=== PATIENT | male | born 1975 | race Hispanic/Latino ===

== ENCOUNTER 2018-05-04 13:56 | Emergency (ER) | payer BC ==
[2018-05-04] MEDS ORDERED: TETRACAINE HCL 0.5% 2ML OPTH ONE (14:54)
[2018-05-04] MEDS ORDERED: FLUORESCEIN SODIUM 0.6 MG/WRAP ONE (14:54)
[2018-05-04] MEDS ORDERED: BACITRACIN OPTH OINT TUBE EACH EYE ONE (16:15)
--- NOTE | 2018-05-04 16:15 | ER ---
Nurse's Notes [facility] Name: Ki Rodriguez Age: 42 yrs Sex: Male : 1975 Arrival Date: 05/04/2018 Time: 13:59 Bed 14 Private MD: None, None Diagnosis: Injury of conjunctiva and corneal abrasion without foreign body Presentation: 05/04 14:07 Presenting complaint: Patient states: was weed eating yesterday and felt like he got iw something in his right eye, still bothering him today, denies loss of vision or blurry vision. Transition of care: patient was not received from another setting of care. Onset of symptoms was May 03, 2018. Risk Assessment: Do you want to hurt yourself or someone else? Patient reports no desire to harm self or others. Initial Sepsis Screen: Does the patient meet any 2 criteria? No. Patient's initial sepsis screen is negative. Does the patient have a suspected source of infection? No. Patient's initial sepsis screen is negative. Care prior to arrival: None. 14:07 Method Of Arrival: Ambulatory iw 14:07 Acuity: SNEHAL 4 iw Historical: - Allergies: 14:08 NKA; iw - Home Meds: 14:08 None [Active]; iw - PMHx: 14:08 Asthma; iw - PSHx: 14:08 left knee; iw - Immunization history:: Adult Immunizations unknown, Last tetanus immunization: unknown. - Social history:: Smoking status: Patient uses tobacco products, smokes one pack cigarettes per day. - Ebola Screening: : No symptoms or risks identified at this time. - Family history:: not pertinent. Screenin:54 Abuse screen: Denies threats or abuse. Nutritional screening: No deficits noted. hj Tuberculosis screening: No symptoms or risk factors identified. Fall Risk None identified. Assessment: 14:51 General: Appears in no apparent distress. uncomfortable, Behavior is calm, cooperative, hj appropriate for age. Pain: Complains of pain in right eye Pain does not radiate. Pain currently is 10 out of 10 on a pain scale. at worst was 10 out of 10 on a pain scale. Quality of pain is described as stabbing, Pain began 1 day ago. Is intermittent. Neuro: Level of Consciousness is awake, alert, obeys commands, Oriented to person, place, time, situation. Cardiovascular: Heart tones S1 S2 present Patient's skin is warm and dry. Respiratory: Airway is patent Respiratory effort is even, unlabored, Respiratory pattern is regular, symmetrical, Breath sounds are clear bilaterally. GI: No signs and/or symptoms were reported involving the gastrointestinal system. : No signs and/or symptoms were reported regarding the genitourinary system. EENT: Eyes redness and discahrges;. Derm: No signs and/or symptoms reported regarding the dermatologic system. Musculoskeletal: No signs and/or symptoms reported regarding the musculoskeletal system. 15:48 Reassessment: Pt is resting with eyes closed. Respirations even and unlabored. no signs jb4 of distress noted. Vital Signs: 14:12 BP 161 / 92; Pulse 78; Resp 16; Temp 98.2; Pulse Ox 98% on R/A; Weight 99.79 kg; Height iw 5 ft. 5 in. (165.10 cm); Pain 10/10; 14:55 BP 134 / 77; Pulse 63; Resp 18; Pulse Ox 98% on R/A; Pain 10/10; hj 15:48 BP 118 / 74; Pulse 56; Resp 16; Pulse Ox 97% on R/A; jb4 14:12 Body Mass Index 36.61 (99.79 kg, 165.10 cm) iw ED Course: 13:59 Patient arrived in ED. sb2 13:59 None, None is Private Physician. sb2 14:03 Ranjan Chavez, RN is Primary Nurse. hj 14:08 Triage completed. iw 14:12 Arm band placed on. iw 14:13 Sohail Rosado MD is Attending Physician. kiko 14:54 Patient has correct armband on for positive identification. Bed in low position. Call hj light in reach. Side rails up X 1. personnel monitor on. Pulse ox on. 16:14 Fernando Menjivar MD is Referral Physician. kiko 16:49 No provider procedures requiring assistance completed. Patient did not have IV access iw during this emergency room visit. 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 Exp: iw 06/22/2018. Lot #: [id number]. } Route: IM; Site: right deltoid; 16:48 Follow up: Response: No adverse reaction iw 16:10 Drug: Bacitracin Ointment 1 strip Route: Ophthalmic; Site: right eye; iw Outcome: 16:14 Discharge ordered by . kiko 16:49 Discharged to home ambulatory. iw 16:49 Condition: stable 16:49 Discharge instructions given to patient, Instructed on discharge instructions, follow up and referral plans. medication usage, Demonstrated understanding of instructions, follow-up care, medications, Prescriptions given X 2. 16:49 Patient left the ED. iw Signatures: Sohail Rosado MD MD cha Williams, Irene, RN RN Ranjan Chavez RN RN Erich Hair RN RN jb4 Ana Liu sb2 Corrections: (The following items were deleted from the chart) 15:02 14:51 EENT: No signs and/or symptoms were reported regarding the EENT system. radha garcia
--- NOTE | 2018-05-04 16:15 | EDPHYS ---
Physician Documentation [facility] Name: Ki Rodriguez Age: 42 yrs Sex: Male : 1975 Arrival Date: 05/04/2018 Time: 13:59 Bed 14 Private MD: None, None ED Physician Sohail Rosado HPI: 05/04 16:10 This 42 yrs old Male presents to ER via Ambulatory with complaints of Foreign kiko Body In Eye. 16:10 The patient is experiencing foreign body sensation, pain, redness. Onset: The kiko symptoms/episode began/occurred just prior to arrival. Duration: the symptoms are continuous. Aggravated by blinking, Alleviated by nothing, covering eye. Associated signs and symptoms: Pertinent positives: None. Pertinent negatives: None. Patient wears glasses. Severity of symptoms: At their worst the symptoms were mild in the emergency department the symptoms are unchanged. The patient has not experienced similar symptoms in the past. Historical: - Allergies: 14:08 NKA; iw - Home Meds: 14:08 None [Active]; iw - PMHx: 14:08 Asthma; iw - PSHx: 14:08 left knee; iw - Immunization history:: Adult Immunizations unknown, Last tetanus immunization: unknown. - Social history:: Smoking status: Patient uses tobacco products, smokes one pack cigarettes per day. - Ebola Screening: : No symptoms or risks identified at this time. - Family history:: not pertinent. ROS: 16:10 Constitutional: Negative for fever, chills, and weight loss, ENT: Negative for injury, kiko pain, and discharge, Neck: Negative for injury, pain, and swelling, Cardiovascular: Negative for chest pain, palpitations, and edema, Respiratory: Negative for shortness of breath, cough, wheezing, and pleuritic chest pain, Abdomen/GI: Negative for abdominal pain, nausea, vomiting, diarrhea, and constipation, Back: Negative for injury and pain, : Negative for injury, bleeding, discharge, and swelling, MS/Extremity: Negative for injury and deformity, Skin: Negative for injury, rash, and discoloration, Neuro: Negative for headache, weakness, numbness, tingling, and seizure, Psych: Negative for depression, anxiety, suicide ideation, homicidal ideation, and hallucinations, Allergy/Immunology: Negative for hives, rash, and allergies, Endocrine: Negative for neck swelling, polydipsia, polyuria, polyphagia, and marked weight changes, Hematologic/Lymphatic: Negative for swollen nodes, abnormal bleeding, and unusual bruising. 16:10 Eyes: Positive for pain, redness. Exam: 16:10 Constitutional: This is a well developed, well nourished patient who is awake, alert, kiko and in no acute distress. Head/Face: Normocephalic, atraumatic. ENT: Nares patent. No nasal discharge, no septal abnormalities noted. Tympanic membranes are normal and external auditory canals are clear. Oropharynx with no redness, swelling, or masses, exudates, or evidence of obstruction, uvula midline. Mucous membranes moist. Neck: Trachea midline, no thyromegaly or masses palpated, and no cervical lymphadenopathy. Supple, full range of motion without nuchal rigidity, or vertebral point tenderness. No Meningismus. Chest/axilla: Normal chest wall appearance and motion. Nontender with no deformity. No lesions are appreciated. Cardiovascular: Regular rate and rhythm with a normal S1 and S2. No gallops, murmurs, or rubs. Normal PMI, no JVD. No pulse deficits. Respiratory: Lungs have equal breath sounds bilaterally, clear to auscultation and percussion. No rales, rhonchi or wheezes noted. No increased work of breathing, no retractions or nasal flaring. Abdomen/GI: Soft, non-tender, with normal bowel sounds. No distension or tympany. No guarding or rebound. No evidence of tenderness throughout. Back: No spinal tenderness. No costovertebral tenderness. Full range of motion. Male : Normal genitalia with no discharge or lesions. Skin: Warm, dry with normal turgor. Normal color with no rashes, no lesions, and no evidence of cellulitis. MS/ Extremity: Pulses equal, no cyanosis. Neurovascular intact. Full, normal range of motion. Neuro: Awake and alert, GCS 15, oriented to person, place, time, and situation. Cranial nerves II-XII grossly intact. Motor strength 5/5 in all extremities. Sensory grossly intact. Cerebellar exam normal. Normal gait. Psych: Awake, alert, with orientation to person, place and time. Behavior, mood, and affect are within normal limits. 16:10 Eyes: Pupils: no acute changes, equal, round, and reactive to light and accomodation, Extraocular movements: intact throughout, Conjunctiva: injected, Corneas: abrasion, a fluorescein strip employed to appreciate the findings, Sclera: no appreciated abnormality, Anterior chamber: normal, no acute changes, Lids and lashes: appear normal, no acute changes, Nystagmus: is not appreciated. Vital Signs: 14:12 BP 161 / 92; Pulse 78; Resp 16; Temp 98.2; Pulse Ox 98% on R/A; Weight 99.79 kg; Height iw 5 ft. 5 in. (165.10 cm); Pain 10/10; 14:55 BP 134 / 77; Pulse 63; Resp 18; Pulse Ox 98% on R/A; Pain 10/10; hj 15:48 BP 118 / 74; Pulse 56; Resp 16; Pulse Ox 97% on R/A; jb4 14:12 Body Mass Index 36.61 (99.79 kg, 165.10 cm) iw MDM: 14:13 Patient medically screened. 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 Exp: iw 06/22/2018. Lot #: [id number]. } Route: IM; Site: right deltoid; 16:48 Follow up: Response: No adverse reaction iw 16:10 Drug: Bacitracin Ointment 1 strip Route: Ophthalmic; Site: right eye; iw Disposition: 05/04/18 16:14 Discharged to Home. Impression: Injury of conjunctiva and corneal abrasion without foreign body. - Condition is Stable. - Discharge Instructions: Corneal Abrasion, Corneal Abrasion, [id number]. - Prescriptions for Tylenol- Codeine #3 300-30 mg Oral Tablet - take 2 tablets by ORAL route every 6 hours As needed; 24 tablet. Bacitracin 500 unit/gram Ophthalmic Ointment - instill 0.5 inch by OPHTHALMIC route every 6 hours; 3.5 tube. - Medication Reconciliation Form, Thank You Letter, Antibiotic Education, Prescription Opioid Use form. - Follow up: Private Physician; When: 2 - 3 days; Reason: Recheck today's complaints, Continuance of care, Re-evaluation by your physician. Follow up: Fernando Menjivar MD; When: Tomorrow; Reason: Recheck today's complaints, Continuance of care, Re-evaluation by your physician. - Problem is new. - Symptoms have improved. Signatures: Sohail Rosado MD MD cha Williams, Irene, RN RN iw Joaquin, Henry, RN RN Corrections: (The following items were deleted from the chart) 16:49 16:14 05/04/2018 16:14 Discharged to Home. Impression: Injury of conjunctiva and iw corneal abrasion without foreign body. Condition is Stable. Forms are Medication Reconciliation Form, Thank You Letter, Antibiotic Education, Prescription Opioid Use. Follow up: Private Physician; When: 2 - 3 days; Reason: Recheck today's complaints, Continuance of care, Re-evaluation by your physician. Follow up: Fernando Menjivar; When: Tomorrow; Reason: Recheck today's complaints, Continuance of care, Re-evaluation by your physician. Problem is new. Symptoms have improved. kiko
[2018-05-04] MEDS ORDERED: TETANUS & DIPHTHERIA TOX,ADULT 0.5 ML VIAL ONE (16:24)
== END 2018-05-04 16:49 | disposition home or self-care (01) ==
LOC: ER 13:56
DX: S05.02XA Injury of conjunctiva and corneal abrasion without foreign body, left eye, initial encounter (principal); S05.01XA Injury of conjunctiva and corneal abrasion without foreign body, right eye, initial encounter; F17.210 Nicotine dependence, cigarettes, uncomplicated; X58.XXXA Exposure to other specified factors, initial encounter; Y93.9 Activity, unspecified; Y92.9 Unspecified place or not applicable; Y99.9 Unspecified external cause status; Z23 Encounter for immunization
CPT/HCPCS: 90714; 99284

== ENCOUNTER 2018-08-06 21:12 | Emergency (ER) | payer BC ==
[2018-08-06 21:54] LABS: Absolute Monocytes 0.8 K/uL (0.1-1.3); Absolute Neutrophil 3.6 K/uL (1.8-8.0); Eosinophils % 4.8 % (0-4.4); Hematocrit 47.4 % (39.6-49.0); Lymphocytes % 37.9 % (15.3-44.8); MCH 32.2 pg (27.0-35.0); MCV 93.5 fL (80-100); MPV 10.6 fL (7.6-11.3); Monocytes % 10.7 % (3.3-12.3); RBC Red Blood Cell Count 5.07 M/uL (4.33-5.43)
[2018-08-06 22:14] LABS: Potassium 3.9 mmol/L (3.5-5.1)
[2018-08-06] MEDS ORDERED: HYDROCODONE/APAP 5/325 MG TAB ONE (22:46)
--- NOTE | 2018-08-06 22:56 | ER ---
Nurse's Notes [facility] Name: Ki Rodriguez Age: 43 yrs Sex: Male : 1975 Arrival Date: 08/06/2018 Time: 21:15 Bed 7 Private MD: Diagnosis: Insect bites right buttock Presentation: 08/06 21:17 Presenting complaint: Patient states: "I have pain in my lower back and around my leg aj1 and it looks like something bit me. At first it looked like a blister, but then it popped and it was draining, but it isnt now." Reports abscess to right hip and back pain for the past 6 days. Denies fever. Transition of care: patient was not received from another setting of care. Onset of symptoms was August 01, 2018. Risk Assessment: Do you want to hurt yourself or someone else? Patient reports no desire to harm self or others. Initial Sepsis Screen: Does the patient meet any 2 criteria? No. Patient's initial sepsis screen is negative. Does the patient have a suspected source of infection? Yes: Skin breakdown/wound. Care prior to arrival: None. 21:17 Method Of Arrival: Ambulatory aj 21:17 Acuity: SNEHAL 4 aj1 Triage Assessment: 21:21 General: Appears in no apparent distress. uncomfortable, Behavior is calm, cooperative, aj1 appropriate for age. Pain: Pain currently is 10 out of 10 on a pain scale. Neuro: Level of Consciousness is awake, alert, obeys commands. Cardiovascular: Patient's skin is warm and dry. Respiratory: Airway is patent Respiratory effort is even, unlabored, Respiratory pattern is regular, symmetrical. Musculoskeletal: Range of motion: intact in all extremities. Historical: - Allergies: 21:21 NKA; aj1 - Home Meds: 21:21 None [Active]; aj1 - PMHx: 21:21 Asthma; aj1 - PSHx: 21:21 Knee surgery; aj1 - Immunization history:: Flu vaccine is up to date. - Social history:: Smoking status: Patient uses tobacco products, smokes one pack cigarettes per day. - Ebola Screening: : Patient denies travel to an Ebola-affected area in the 21 days before illness onset. Screenin:10 Abuse screen: Denies threats or abuse. Denies injuries from another. Nutritional rr5 screening: No deficits noted. Tuberculosis screening: No symptoms or risk factors identified. Fall Risk None identified. Assessment: 21:31 General: Appears in no apparent distress. uncomfortable, Behavior is calm, cooperative, rr5 appropriate for age, Reports severe pain at right buttocks area. Pain: Complains of pain in right gluteus kristen Pain radiates to back and right inner thigh Pain currently is 10 out of 10 on a pain scale. Quality of pain is described as aching, Pain began 5 days Is intermittent, Goal of pain control is to be pain free. Neuro: Level of Consciousness is awake, alert, obeys commands, Oriented to person, place, time. Cardiovascular: Capillary refill < 3 seconds Patient's skin is warm and dry. Respiratory: Airway is patent. GI: No signs and/or symptoms were reported involving the gastrointestinal system. : No signs and/or symptoms were reported regarding the genitourinary system. EENT: No signs and/or symptoms were reported regarding the EENT system. Derm: No signs and/or symptoms reported regarding the dermatologic system. Skin is intact, Skin is dry, Skin is pink, warm \\T\\ dry. Skin temperature is warm Wound noted buttocks right, small 2 block dots, redness on the surrounding area, warm to touch. Musculoskeletal: No signs and/or symptoms reported regarding the musculoskeletal system. 22:13 Reassessment: Patient appears in no apparent distress at this time. Patient and/or rr5 family updated on plan of care and expected duration. Pain level reassessed. 23:09 Reassessment: Patient states feeling better. Patient states symptoms have improved. rr5 Pain: Noted to be. Vital Signs: 21:21 BP 153 / 99; Pulse 61; Resp 18; Temp 97.1; Pulse Ox 98% on R/A; Weight 99.79 kg (R); aj1 Height 5 ft. 5 in. (165.10 cm) (R); Pain 10/10; 21:31 BP 151 / 99; Pulse 75; Resp 16; Temp 97.9(O); Pulse Ox 98% on R/A; rr5 22:14 BP 128 / 72; Pulse 62; Resp 16; Pulse Ox 97% on R/A; rr5 21:21 Body Mass Index 36.61 (99.79 kg, 165.10 cm) aj1 ED Course: 21:15 Patient arrived in ED. es 21:20 Patient has correct armband on for positive identification. rr5 21:20 No provider procedures requiring assistance completed. IV discontinued, bleeding rr5 controlled, Pressure dressing applied. 21:21 Triage completed. aj1 21:21 Arm band placed on Patient placed in an exam room. aj1 21:24 Henrik Rees MD is Attending Physician. pkl 21:30 Jordan Velasco RN is Primary Nurse. rr5 21:40 Inserted saline lock: 20 gauge in right forearm, using aseptic technique. ,using rr5 aseptic technique. inserted by [facility] Blood collected. Administered Medications: 22:40 Drug: [place] 5 mg-325 mg 1 tabs Route: PO; rr5 23:12 Follow up: Response: No adverse reaction rr5 Outcome: 21:20 Discharged to home ambulatory. rr5 21:20 Condition: stable 21:20 Discharge instructions given to patient, Instructed on discharge instructions, medication usage, Demonstrated understanding of instructions, medications, Prescriptions given X 2. 22:55 Discharge ordered by . pkl 23:11 Patient left the ED. rr5 Signatures: Joana Bello, RN RN aj1 Henrik Rees MD MD pkSmiley Harrell Jordan Velasco RN RN rr5
--- NOTE | 2018-08-06 22:56 | EDPHYS ---
Physician Documentation [facility] Name: Ki Rodriguez Age: 43 yrs Sex: Male : 1975 Arrival Date: 08/06/2018 Time: 21:15 Bed 7 Private MD: ED Physician Henrik Rees HPI: 08/06 21:30 This 43 yrs old Male presents to ER via Ambulatory with complaints of Back pkl Pain. 21:30 The patient was bitten on the right buttock. Onset: The symptoms/episode began/occurred pkl 6 day(s) ago. Associated signs and symptoms: Pertinent positives: back pain and pain right thigh. Historical: - Allergies: 21:21 NKA; aj1 - Home Meds: 21:21 None [Active]; aj1 - PMHx: 21:21 Asthma; aj1 - PSHx: 21:21 Knee surgery; aj1 - Immunization history:: Flu vaccine is up to date. - Social history:: Smoking status: Patient uses tobacco products, smokes one pack cigarettes per day. - Ebola Screening: : Patient denies travel to an Ebola-affected area in the 21 days before illness onset. ROS: 21:30 Eyes: Negative for injury, pain, redness, and discharge, ENT: Negative for injury, pkl pain, and discharge, Neck: Negative for injury, pain, and swelling, Cardiovascular: Negative for chest pain, palpitations, and edema, Respiratory: Negative for shortness of breath, cough, wheezing, and pleuritic chest pain, Abdomen/GI: Negative for abdominal pain, nausea, vomiting, diarrhea, and constipation. 21:30 Back: Positive for pain at rest, of the right lower back. 21:30 : Negative for urinary symptoms. 21:30 MS/extremity: Negative for acute changes. 21:30 Skin: Positive for bite giraldo right buttock. Exam: 21:30 Head/Face: Normocephalic, atraumatic. Eyes: Pupils equal round and reactive to light, pkl extra-ocular motions intact. Lids and lashes normal. Conjunctiva and sclera are non-icteric and not injected. Cornea within normal limits. Periorbital areas with no swelling, redness, or edema. ENT: Nares patent. No nasal discharge, no septal abnormalities noted. Tympanic membranes are normal and external auditory canals are clear. Oropharynx with no redness, swelling, or masses, exudates, or evidence of obstruction, uvula midline. Mucous membranes moist. Neck: Trachea midline, no thyromegaly or masses palpated, and no cervical lymphadenopathy. Supple, full range of motion without nuchal rigidity, or vertebral point tenderness. No Meningismus. Chest/axilla: Normal chest wall appearance and motion. Nontender with no deformity. No lesions are appreciated. Cardiovascular: Regular rate and rhythm with a normal S1 and S2. No gallops, murmurs, or rubs. Normal PMI, no JVD. No pulse deficits. Respiratory: Lungs have equal breath sounds bilaterally, clear to auscultation and percussion. No rales, rhonchi or wheezes noted. No increased work of breathing, no retractions or nasal flaring. Abdomen/GI: Soft, non-tender, with normal bowel sounds. No distension or tympany. No guarding or rebound. No evidence of tenderness throughout. 21:30 Back: pain, that is mild, of the right lower back. 21:30 : Exam negative for acute changes. 21:30 Musculoskeletal/extremity: Exam is negative for acute changes. 21:30 Skin: bite giraldo right buttock, slightly tender. No definite abscess noted at this time. 21:30 Neuro: Exam negative for acute changes, Orientation: is normal, Mentation: is normal, Cranial nerves: grossly normal, Motor: is normal. Vital Signs: 21:21 BP 153 / 99; Pulse 61; Resp 18; Temp 97.1; Pulse Ox 98% on R/A; Weight 99.79 kg (R); aj1 Height 5 ft. 5 in. (165.10 cm) (R); Pain 10/10; 21:31 BP 151 / 99; Pulse 75; Resp 16; Temp 97.9(O); Pulse Ox 98% on R/A; rr5 22:14 BP 128 / 72; Pulse 62; Resp 16; Pulse Ox 97% on R/A; rr5 21:21 Body Mass Index 36.61 (99.79 kg, 165.10 cm) aj1 MDM: 21:24 Patient medically screened. pk 22:54 Data reviewed: vital signs, nurses notes, lab test result(s). [facility] 08/06 21:29 Order name: CBC with Diff; Complete Time: 22:52 [facility] 08/06 21:29 Order name: Chem 7; Complete Time: 22:52 pkl 08/06 21:29 Order name: Sed Rate; Complete Time: 22:52 pkl 08/06 22:46 Order name: Urine Dipstick--Ancillary (enter results); Complete Time: 01:03 ms Administered Medications: 22:40 Drug: [place] 5 mg-325 mg 1 tabs Route: PO; rr5 23:12 Follow up: Response: No adverse reaction rr5 Disposition: 08/06/18 22:55 Discharged to Home. Impression: Insect bites right buttock. - Condition is Stable. - Prescriptions for Ultram 50 mg Oral Tablet - take 1 tablet by ORAL route every 8 hours As needed; 20 tablet. Keflex 500 mg Oral Capsule - take 1 capsule by ORAL route every 6 hours for 7 days; 28 capsule. - Medication Reconciliation Form, Thank You Letter, Antibiotic Education, Prescription Opioid Use form. - Follow up: Private Physician; When: 2 - 3 days; Reason: Re-evaluation by your physician. - Problem is new. - Symptoms have improved. 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 [facility] 23:11 22:55 08/06/2018 22:55 Discharged to Home. Impression: Insect bites right buttock. rr5 Condition is Stable. Forms are Medication Reconciliation Form, Thank You Letter, Antibiotic Education, Prescription Opioid Use. Follow up: Private Physician; When: 2 - 3 days; Reason: Re-evaluation by your physician. Problem is new. Symptoms have improved. pkl
[2018-08-06 22:57] LABS: Urine Blood NEGATIVE (NEG); Urine Glucose NEGATIVE (NEG); Urine Protein NEGATIVE (NEG); Urine Specific Gravity 1.025 (1.005-1.030)
== END 2018-08-06 23:11 | disposition home or self-care (01) ==
LOC: ER 21:12
DX: S30.860A Insect bite (nonvenomous) of lower back and pelvis, initial encounter (principal); W57.XXXA Bitten or stung by nonvenomous insect and other nonvenomous arthropods, initial encounter; F17.210 Nicotine dependence, cigarettes, uncomplicated
CPT/HCPCS: 36415; 80048; 81003; 85025; 85652; 99284

== ENCOUNTER 2022-02-13 09:55 | Emergency (ER) | payer SELFPAY ==
[2022-02-13] MEDS ORDERED: HYDROCODONE/APAP 7.5/325 MG TAB ONE (11:39)
--- NOTE | 2022-02-13 11:48 | RAD REPORT ---
EXAM DESCRIPTION: RAD - Knee Left 3 View - 02/13/2022 11:28 am CLINICAL HISTORY: knee pain COMPARISON: <Comparisons> FINDINGS: No acute fracture. A knee effusion is present. Prominence of the infrapatellar soft tissue s noted. Prior patellar tendon repair at the tibial tubercle. IMPRESSION: No fractures identified. Abnormalities of the infrapatellar soft tissue at the patellar tendon could represent a tear. MRI could clarify.
--- NOTE | 2022-02-13 12:14 | EDPHYS ---
Physician Documentation [facility] Name: Ki Rodriguez Age: 46 yrs Sex: Male : 1975 Arrival Date: 02/13/2022 Time: 09:57 Bed DIS3 Private MD: ED Physician Cristian Saul HPI: 02/13 10:29 This 46 yrs old Male presents to ER via Ambulatory with complaints of Knee jmm Pain. 10:29 The patient presents with an injury, pain. Onset: The symptoms/episode began/occurred jmm acutely, 1 week(s) ago. Modifying factors: The symptoms are alleviated by nothing. the symptoms are aggravated by movement, weight bearing, bending knee. Associated signs and symptoms: Pertinent positives: swelling. Is a 46-year-old male with history of asthma the presents emerged part with complaints of left anterior knee pain beginning after fall which occurred week ago. Patient states he has mainly anterior knee swelling. Does have a previous injury to the patellar tendon.. Historical: - Allergies: 10:28 NKA; iw - PMHx: 10:28 Asthma; iw - Immunization history:: Adult Immunizations up to date. - Social history:: Smoking status: Patient denies any tobacco usage or history of. ROS: 10:29 Constitutional: Negative for fever, chills, and weight loss, Cardiovascular: Negative jmm for chest pain, palpitations, and edema, Respiratory: Negative for shortness of breath, cough, wheezing, and pleuritic chest pain. 10:29 MS/extremity: Positive for injury or acute deformity. 10:29 All other systems are negative. Exam: 10:29 Constitutional: This is a well developed, well nourished patient who is awake, alert, jmm and in no acute distress. Head/Face: atraumatic. Eyes: EOMI, no conjunctival erythema appreciated ENT: Moist Mucus Membranes Neck: Trachea midline, Supple Chest/axilla: Normal chest wall appearance and motion. Cardiovascular: Regular rate and rhythm. No edema appreciated Respiratory: Normal respirations, no respiratory distress appreciated Abdomen/GI: Non distended, soft Back: Normal ROM Skin: General appearance color normal 10:29 Musculoskeletal/extremity: Swelling noted to the left anterior knee, painful range of motion appreciated, compartments are soft, full dorsalis pedis pulse appreciated, neurovascular intact. 10:29 Skin: Appearance: Color: normal in color. 10:29 Neuro: Orientation: is normal, Mentation: is normal, Memory: is normal. 10:29 Psych: Behavior/mood is pleasant, cooperative. Vital Signs: 10:29 BP 170 / 110; Pulse 102; Resp 16; Temp 98.2; Pulse Ox 100% on R/A; Weight 108.86 kg; iw Height 5 ft. 5 in. (165.10 cm); Pain 07/14; 10: Body Mass Index 39.94 (108.86 kg, 165.10 cm) iw MDM: 10:30 Patient medically screened. [facility] 12:12 Data reviewed: vital signs, nurses notes. Counseling: I had a detailed discussion with [facility] the patient and/or guardian regarding: the historical points, exam findings, and any diagnostic results supporting the discharge/admit diagnosis, radiology results, the need for outpatient follow up, to return to the emergency department if symptoms worsen or persist or if there are any questions or concerns that arise at home. ED course: Patient is alert nontoxic in appearance NAD. X-ray reveals concern for patellar tendon injury. Patient given knee immobilizer. We will follow-up with Dr. Warner for further evaluation. Patient otherwise given strict return precautions. Patient understood agrees plan of care.. 02/13 10:29 Order name: Knee Left 3 View XRAY; Complete Time: 11:59 [facility] 02/13 12:00 Order name: Knee Immobilizer; Complete Time: 12:21 [facility] 02/13 12:21 Order name: Crutches; Complete Time: 12:21 ss Administered Medications: 11:40 Drug: Hydrocodone-Acetaminophen (7.5 mg-325 mg) 1 tabs Route: PO; iw 12:21 Follow up: Response: No adverse reaction; Pain is decreased; RASS: Alert and Calm (0) ss Disposition: 22:07 Co-signature as Attending Physician, Cristian Saul DO I was immediately available on-site ms3 in the Emergency Department for consultation in the care of the patient.. Disposition Summary: 02/13/22 12:13 Discharge Ordered Location: Home [facility] Condition: Stable [facility] Diagnosis - Other internal derangements of left knee [facility] Followup: [facility] - With: Charli Warner MD - When: As needed - Reason: Recheck today's complaints, Continuance of care, Re-evaluation by your physician Discharge Instructions: - Discharge Summary Sheet jmm - Acute Knee Pain, Adult jmm - Patellar Tendon Tear jmm - Patellar Tendon Tear Rehab-SportsMed [facility] Forms: - Medication Reconciliation Form [facility] - Thank You Letter [facility] - Antibiotic Education [facility] - Prescription Opioid Use [facility] Prescriptions: - Diclofenac Sodium 75 mg Oral Tablet Sustained Release - take 1 tablet by ORAL route 2 times per day; 30 tablet; Refills: 0, Product [facility] Selection Permitted - orphenadrine citrate 100 mg Oral Tablet Sustained Release - take 1 tablet by ORAL route 2 times per day As needed; 20 tablet; Refills: 0, [facility] Product Selection Permitted Signatures: Dispatcher [employer] EDJam Smith PA PA jmm Williams, Irene, RN RN iw Smirch, Shelby, RN RN ss Sims, Marcus, DO DO ms3
--- NOTE | 2022-02-13 12:14 | ER ---
Nurse's Notes [facility] Name: Ki Rodriguez Age: 46 yrs Sex: Male : 1975 Arrival Date: 02/13/2022 Time: 09:57 Bed DIS3 Private MD: Diagnosis: Other internal derangements of left knee Presentation: 02/13 10:28 Chief complaint: Patient states: left knee pain, hx of knee surgery and pins to knee. iw Coronavirus screen: At this time, the client does not indicate any symptoms associated with coronavirus-19. Ebola Screen: Patient negative for fever greater than or equal to 101.5 degrees Fahrenheit, and additional compatible Ebola Virus Disease symptoms Patient denies exposure to infectious person. No symptoms or risks identified at this time. Initial Sepsis Screen: Does the patient meet any 2 criteria? No. Patient's initial sepsis screen is negative. Does the patient have a suspected source of infection? No. Patient's initial sepsis screen is negative. 10:28 Method Of Arrival: Ambulatory iw 10:28 Acuity: SNEHAL 4 iw 10:29 Risk Assessment: Do you want to hurt yourself or someone else? Patient reports no iw desire to harm self or others. Onset of symptoms was February 08, 2022. Historical: - Allergies: 10:28 NKA; iw - PMHx: 10:28 Asthma; iw - Immunization history:: Adult Immunizations up to date. - Social history:: Smoking status: Patient denies any tobacco usage or history of. Screenin:26 Abuse screen: Denies threats or abuse. Denies injuries from another. Nutritional ss screening: No deficits noted. Tuberculosis screening: Never had TB. Fall Risk None identified. Assessment: 12:22 Reassessment: Patient appears in no apparent distress at this time. crutches and knee ss immobilizer given. 12:26 Reassessment: Patient appears in no apparent distress at this time. Patient and/or ss family updated on plan of care and expected duration. Pain level reassessed. Patient is alert, oriented x 3, equal unlabored respirations, skin warm/dry/pink. Vital Signs: 10:29 BP 170 / 110; Pulse 102; Resp 16; Temp 98.2; Pulse Ox 100% on R/A; Weight 108.86 kg; iw Height 5 ft. 5 in. (165.10 cm); Pain 10/10; 10:29 Body Mass Index 39.94 (108.86 kg, 165.10 cm) iw ED Course: 09:57 Patient arrived in ED. mr 10:00 Cristian Saul DO is Attending Physician. ms3 10:22 Jam Syed PA is PHCP. m 10:28 Triage completed. iw 10:30 Arm band placed on. iw 11:30 Knee Left 3 View XRAY In Process Unspecified. EDMS 12:04 Nemo Monroy, RN is Primary Nurse. ss 12:13 Charli Warner MD is Referral Physician. jmm 12:26 Patient has correct armband on for positive identification. Bed in low position. Call ss light in reach. 12:26 No provider procedures requiring assistance completed. Patient did not have IV access ss during this emergency room visit. 12:27 Crutch training done. Knee immobilizer applied on left knee. ss Administered Medications: 11:40 Drug: Hydrocodone-Acetaminophen (7.5 mg-325 mg) 1 tabs Route: PO; iw 12:21 Follow up: Response: No adverse reaction; Pain is decreased; RASS: Alert and Calm (0) ss Medication: 12:26 VIS not applicable for this client. ss Outcome: 12:13 Discharge ordered by . [facility] 12:26 Discharged to home ambulatory. ss 12:26 Condition: good 12:26 Discharge instructions given to patient, family, Instructed on discharge instructions, follow up and referral plans. medication usage, crutch walking, Demonstrated understanding of instructions, follow-up care, medications, crutch walking, Prescriptions given X 12:28 Patient left the ED. ss Signatures: Dispatcher [employer] EDMS Jam Syed PA PA Reena Sweet Melanie Randall RN RN Nemo Monroy RN RN ss Cristian Saul DO DO ms3 Corrections: (The following items were deleted from the chart) 10:30 10:28 Chief complaint: Patient states: left knee pain, hx of knee surgery and pins to iw knee iw 11:25 10:29 Pulse 102bpm; Resp 16bpm; Pulse Ox 100% RA; Temp 98.2F; 108.86 kg; Height 5 ft. 5 iw in.; BMI: 39.9; Pain 10/10; iw
[2022-02-13 12:48] VITALS: BP 170/110; TEMP 98.2; O2SAT 100
== END 2022-02-13 12:28 | disposition home or self-care (01) ==
LOC: ER 09:55
DX: M23.8X2 Other internal derangements of left knee (principal)
CPT/HCPCS: 99284

== ENCOUNTER 2022-09-04 19:32 | Emergency (ER) | payer SELFPAY ==
--- NOTE | 2022-09-04 20:08 | ER ---
Nurse's Notes [facility] Name: Ki Rodriguez Age: 47 yrs Sex: Male : 1975 Arrival Date: 09/04/2022 Time: 20:01 Bed Waiting Private MD: Diagnosis: ED Course: 09/04 20:01 Patient arrived in ED. bp1 20:03 Goran Joseph NP is PHCP. pm1 20:03 Cristian Saul DO is Attending Physician. pm1 20:07 Patient's name was called from [facility]. No response. Unable to locate patient. Will as6 disposition as left without being seen by a provider. Administered Medications: No medications were administered Outcome: 20:08 Patient left the ED. as6 Signatures: Goran Joseph NP DISPERSION MIXER pm1 Darcie Gilbert bp1 Alexis Kowalski, RN RN as6
--- NOTE | 2022-09-04 20:08 | EDPHYS ---
Physician Documentation [facility] Name: Ki Rodriguez Age: 47 yrs Sex: Male : 1975 Arrival Date: 09/04/2022 Time: 20:01 Bed Waiting Private MD: ED Physician Administered Medications: No medications were administered Disposition Summary: 09/04/22 20:07 Eloped Disposition: Before Triage as6 Reason: unknown as6 Signatures: Goran Joseph NP LEAD APPLICATION ARCHITECT pm1 Alexis Kowalski RN RN as6 Corrections: (The following items were deleted from the chart) 09/04 20:07 20:05 Patient medically screened. pm1 pm1
== END 2022-09-04 20:08 | disposition left against medical advice (07) ==
LOC: ER 19:32
DX: Z02.9 Encounter for administrative examinations, unspecified (principal)

== ENCOUNTER 2024-01-15 03:39 | Emergency (ER) | payer OTHER, SELFPAY ==
[2024-01-15] MEDS ORDERED: HYDROCODONE/APAP 10/325 TAB ONE (04:10)
[2024-01-15] MEDS ORDERED: methocarbamoL 750 MG TAB ONE (04:11)
[2024-01-15] MEDS ORDERED: ONDANSETRON 4 MG (ODT) TAB ONE (04:11)
[2024-01-15] MEDS ORDERED: KETOROLAC 30 MG/ML INJ ONE (04:11)
[2024-01-15 04:34] LABS: Anion Gap 6.7 mEq/L (5.0-15.0); Uric Acid 7.2 mg/dL (3.5-7.2)
[2024-01-15 04:35] LABS: Potassium 3.7 mEq/L (3.5-5.1)
--- NOTE | 2024-01-15 06:28 | EDPHYS ---
Physician Documentation [facility] Name: Ki Rodriguez Age: 48 yrs Sex: Male : 1975 Arrival Date: 01/15/2024 Time: 03:39 Bed 20 Private MD: ED Physician Peña Gomez HPI: 01/14 04:01 This 48 yrs old Male presents to ER via Ambulatory with complaints of Toe sp4 Injury. 06:28 48-year-old male presents with moderate to severe pain in the right great toe sp4 metatarsophalangeal joint starting 2 weeks ago worsening this evening. Patient states he has trouble bearing weight. . Historical: - Allergies: 03:51 NKA; rv - PMHx: 03:51 Asthma; rv - Immunization history:: Adult Immunizations up to date. - Infectious Disease History:: Denies. - Social history:: Smoking status: unknown. - Family history:: not pertinent. ROS: 06:28 Constitutional: Negative for fever, chills, and weight loss, positive for right great sp4 toe and right great toe metatarsophalangeal joint pain. 06:28 All other systems are negative, Exam: 06:28 Constitutional: This is a well developed, well nourished patient who is awake, alert, sp4 and in no acute distress. Head/Face: Normocephalic, atraumatic. Eyes: Pupils equal round and reactive to light, extra-ocular motions intact. Lids and lashes normal. Conjunctiva and sclera are not injected. Cornea within normal limits. Periorbital areas with no swelling, redness, or edema. ENT: Nares patent. No nasal discharge, no septal abnormalities noted. Tympanic membranes are normal and external auditory canals are clear. Oropharynx with no redness, swelling, or masses, exudates, or evidence of obstruction, uvula midline. Mucous membranes moist. Neck: Trachea midline, no thyromegaly or masses palpated, and no cervical lymphadenopathy. Supple, full range of motion without nuchal rigidity, or vertebral point tenderness. Chest/axilla: Normal chest wall appearance and motion. Nontender with no deformity. No lesions are appreciated. Cardiovascular: Regular rate and rhythm with a normal S1 and S2. No gallops, murmurs, or rubs. Normal PMI, no JVD. No pulse deficits. Respiratory: Lungs have equal breath sounds bilaterally, clear to auscultation and percussion. No rales, rhonchi or wheezes noted. No increased work of breathing, no retractions or nasal flaring. Abdomen/GI: Soft, with normal bowel sounds. No distension or tympany. No guarding or rebound. No evidence of tenderness throughout. Back: No spinal tenderness. No costovertebral tenderness. Skin: Warm, dry with normal turgor. Normal color with no rashes, no lesions, and no evidence of cellulitis. MS/ Extremity: Pulses equal, no cyanosis. Neurovascular intact. Full, normal range of motion. Positive for right great toe metatarsophalangeal joint pain and tenderness. Mild redness and swelling. This is consistent with podagra Neuro: Awake and alert, GCS 15, oriented to person, place, time, and situation. Cranial nerves II-XII grossly intact. Motor strength 5/5 in all extremities. Sensory grossly intact. Psych: Awake, alert, with orientation to person, place and time. Behavior, mood, and affect are within normal limits Vital Signs: 03:50 Pulse 69; Resp 16; Temp 98; Pulse Ox 99% ; Weight 102.06 kg; Height 5 ft. 5 in. ; rv 05:00 BP 150 / 98; Pulse 60; Resp 17; Pulse Ox 97% on R/A; rv 06:00 BP 146 / 75; Pulse 71; Resp 17; Temp 98; Pulse Ox 99% on R/A; rv 03:50 Body Mass Index 37.44 (102.06 kg, 165.1 cm) rv Jackson Coma Score: 06:00 Eye Response: spontaneous(4). Motor Response: obeys commands(6). Verbal Response: rv oriented(5). Total: 15. 06:28 Eye Response: spontaneous(4). Motor Response: obeys commands(6). Verbal Response: sp4 oriented(5). Total: 15. MDM: 04:36 Patient medically screened. sp4 06:31 Differential Diagnosis altered mental status, sepsis, flu, Gout . Data reviewed: vital sp4 signs, nurses notes, lab test result(s), radiologic studies, plain films. ED course: Patient was provided with short Ortho boot for comfort.. Advised to observe Gout preventing diet . . 06:33 ED course: EXAM DESCRIPTION: Foot Right 3 View CLINICAL HISTORY: foot pain ! sp4 COMPARISON: None. FINDINGS: 3 views of the right foot. No acute fracture or dislocation. Normal osseous mineralization. Tarsals and metatarsals are appropriately aligned. IMPRESSION: No acute fracture or dislocation.. 01/14 04:01 Order name: BMP; Complete Time: 06:20 sp4 01/14 04:01 Order name: Uric Acid; Complete Time: 06:20 sp4 01/14 04:01 Order name: Foot Right 3 View XRAY sp4 01/14 04:02 Order name: Saline Lock; Complete Time: 04:08 sp4 Administered Medications: 04:14 Drug: Ketorolac IVP 30 mg IVP once Route: IVP; Site: right hand; rv 06:35 Follow up: Response: No adverse reaction; Marked relief of symptoms rv 04:14 Drug: Ondansetron PO 4 mg PO once Route: PO; rv 06:35 Follow up: Response: No adverse reaction; Marked relief of symptoms rv 04:14 Drug: Methocarbamol PO 1500 mg PO once Route: PO; rv 06:35 Follow up: Response: No adverse reaction; Marked relief of symptoms rv 04:15 Drug: [place] PO 10 mg-325 mg 1 tabs PO once Route: PO; rv 06:36 Follow up: Response: No adverse reaction; Marked relief of symptoms rv Disposition Summary: 01/15/24 06:27 Discharge Ordered Notes: Location: Home sp4 Problem: new sp4 Symptoms: have improved sp4 Condition: Stable sp4 Diagnosis - Gout, unspecified sp4 - Acute gout the right first metatarsal phalangeal joint, podagra, acute sp4 inflammatory arthritis Followup: sp4 - With: Christopher Hamilton DO - When: 7 - 10 days - Reason: Recheck today's complaints Discharge Instructions: - Discharge Summary Sheet sp4 - Gout sp4 Forms: - Patient Portal Instructions sp4 Prescriptions: - meloxicam 15 mg Oral tablet - take 1 tablet ORAL route daily for 30 days PRN pain; 30 tablet; Refills: 0, sp4 Product Selection Permitted - Ventolin HFA 90 mcg/actuation Inhalation HFA Aerosol Inhaler - inhale 2 puff INHALATION route every 4 hours as needed for shortness of breath sp4 or wheezing, Dispense with Spacer; 1 unit; Refills: 0, Product Selection Permitted - Tramadol 50 mg Oral Tablet - take 1 tablet ORAL route every 8 hours as needed; 12 tablet; Refills: 0, sp4 Product Selection Permitted - Prednisone 20 mg Oral Tablet - take 2 tablets ORAL route once daily for 5 days; 10 tablet; Refills: 0, Product sp4 Selection Permitted Signatures: Dispatcher [employer] EDAlok Betts RN RN rv Potepalov, Sergey, MD MD sp4 Corrections: (The following items were deleted from the chart) 04:02 04:02 BASIC METABOLIC PANEL+C.LAB.BRZ ordered. EDMS EDMS 04:02 04:02 URIC ACID+C.LAB.BRZ ordered. EDMS EDMS
--- NOTE | 2024-01-15 06:28 | ER ---
Nurse's Notes [facility] Name: Ki Rodriguez Age: 48 yrs Sex: Male : 1975 Arrival Date: 01/15/2024 Time: 03:39 Bed 20 Private MD: Diagnosis: Gout, unspecified;Acute gout the right first metatarsal phalangeal joint, podagra, acute inflammatory arthritis Presentation: 01/14 03:50 Chief complaint: Patient states: pain and swelling of the 1st toe, right. started rv yesterday. denies injury. Coronavirus screen: At this time, the client does not indicate any symptoms associated with coronavirus-19. Ebola Screen: No symptoms or risks identified at this time. Initial Sepsis Screen: Does the patient meet any 2 criteria? No. Patient's initial sepsis screen is negative. Does the patient have a suspected source of infection? No. Patient's initial sepsis screen is negative. Risk Assessment: Do you want to hurt yourself or someone else? Patient reports no desire to harm self or others. Onset of symptoms was January 15, 2024. 03:50 Method Of Arrival: Ambulatory rv 03:50 Acuity: SNEHAL 4 rv Triage Assessment: 03:51 General: Appears comfortable, Behavior is calm, cooperative. Pain: Complains of pain in rv right foot. Neuro: Level of Consciousness is awake, alert, obeys commands, Oriented to person, place, time, situation. Cardiovascular: Capillary refill < 3 seconds Patient's skin is warm and dry. Respiratory: Airway is patent Respiratory effort is even, unlabored. GI: No signs and/or symptoms were reported involving the gastrointestinal system. : No signs and/or symptoms were reported regarding the genitourinary system. Musculoskeletal: Reports pain in right foot. Historical: - Allergies: 03:51 NKA; rv - PMHx: 03:51 Asthma; rv - Immunization history:: Adult Immunizations up to date. - Infectious Disease History:: Denies. - Social history:: Smoking status: unknown. - Family history:: not pertinent. Screenin:52 [facility] ED Fall Risk Assessment (Adult) History of falling in the last 3 months, rv including since admission No falls in past 3 months (0 pts) Score/Fall Risk Level 0 - 2 = Low Risk Oriented to surroundings, Maintained a safe environment, Educated pt \T\ family on fall prevention, incl call for assistance when getting out of bed, Assessed \T\ reinforced patient's understanding of fall precautions. Abuse screen: Denies threats or abuse. Denies injuries from another. Nutritional screening: No deficits noted. Tuberculosis screening: No symptoms or risk factors identified. Vital Signs: 03:50 Pulse 69; Resp 16; Temp 98; Pulse Ox 99% ; Weight 102.06 kg; Height 5 ft. 5 in. ; rv 05:00 BP 150 / 98; Pulse 60; Resp 17; Pulse Ox 97% on R/A; rv 06:00 BP 146 / 75; Pulse 71; Resp 17; Temp 98; Pulse Ox 99% on R/A; rv 03:50 Body Mass Index 37.44 (102.06 kg, 165.1 cm) rv Artis Coma Score: 06:00 Eye Response: spontaneous(4). Motor Response: obeys commands(6). Verbal Response: rv oriented(5). Total: 15. 06:28 Eye Response: spontaneous(4). Motor Response: obeys commands(6). Verbal Response: sp4 oriented(5). Total: 15. ED Course: 03:45 Patient arrived in ED. gm2 03:50 Alok Macdonald, NICHO is Primary Nurse. rv 03:51 Triage completed. rv 03:51 Arm band placed on right wrist. rv 03:52 Patient has correct armband on for positive identification. Client placed on continuous rv cardiac and pulse oximetry monitoring. NIBP monitoring applied. 03:52 No provider procedures requiring assistance completed. rv 03:57 Peña Gomez MD is Attending Physician. sp4 04:08 Uric Acid Sent. rv 04:08 BMP Sent. rv 04:08 Initial lab(s) drawn, by me, sent to lab. Inserted saline lock: 20 gauge in right hand, rv using aseptic technique. Blood collected. 04:15 Uric Acid Sent. rv 04:15 BMP Sent. rv 04:24 Foot Right 3 View XRAY In Process Unspecified. EDMS 06:26 Christopher Hamilton DO is Referral Physician. sp4 06:36 IV discontinued, intact, bleeding controlled, No redness/swelling at site. Pressure rv dressing applied. Administered Medications: 04:14 Drug: Ketorolac IVP 30 mg IVP once Route: IVP; Site: right hand; rv 06:35 Follow up: Response: No adverse reaction; Marked relief of symptoms rv 04:14 Drug: Ondansetron PO 4 mg PO once Route: PO; rv 06:35 Follow up: Response: No adverse reaction; Marked relief of symptoms rv 04:14 Drug: Methocarbamol PO 1500 mg PO once Route: PO; rv 06:35 Follow up: Response: No adverse reaction; Marked relief of symptoms rv 04:15 Drug: [place] PO 10 mg-325 mg 1 tabs PO once Route: PO; rv 06:36 Follow up: Response: No adverse reaction; Marked relief of symptoms rv Medication: 03:52 VIS not applicable for this client. rv Outcome: 06:27 Discharge ordered by MD. acharya 06:36 Discharged to home ambulatory, rv 06:36 Condition: good 06:36 Discharge instructions given to patient, Instructed on discharge instructions, follow up and referral plans. medication usage, Demonstrated understanding of instructions, follow-up care, medications, Prescriptions given X 4, 06:36 Patient left the ED. rv Signatures: Dispatcher [employer] EDMS Alok Macdonald, RN RN rv Peña Gomez MD MD sp4 Isabelle Wylie 2
--- NOTE | 2024-01-15 07:07 | RAD REPORT ---
EXAM DESCRIPTION: RAD - Foot Right 3 View - 01/15/2024 4:22 am CLINICAL HISTORY: foot pain ! COMPARISON: No comparisons FINDINGS/IMPRESSION: No acute fracture. Small juxta cortical erosion at the head of the first metata rsal likely reflecting gout. Small calcaneal spurs.
[2024-01-15 11:55] VITALS: BP 146/75; TEMP 98; O2SAT 99
== END 2024-01-15 06:36 | disposition home or self-care (01) ==
LOC: ER 03:39
DX: M10.9 Gout, unspecified (principal); M13.871 Other specified arthritis, right ankle and foot
CPT/HCPCS: 80048; 36415; 84550; 73630; 96374; 99284; Q0162

== ENCOUNTER 2025-02-02 12:01 | Emergency (ER) | payer OTHER ==
[2025-02-02] MEDS ORDERED: ONDANSETRON 4 MG/2 ML VIAL ONE (14:03)
[2025-02-02] MEDS ORDERED: PANTOPRAZOLE 40 MG INJ ONE (14:03)
[2025-02-02 14:44] LABS: Absolute Eosinophils 0.2 K/uL (0-0.5); Absolute Lymphocytes (CBC) 0.7 K/uL (0.7-4.9); Absolute Monocytes 0.7 K/uL (0.1-1.3); Basophils % 0.5 % (0-1.3); Eosinophils % 3.4 % (0-4.4); Hematocrit 50.9 % (39.6-49.0); Hemoglobin 18.3 g/dL (13.6-17.9); Lymphocytes % 12.1 % (15.3-44.8); MCH 32.5 pg (27.0-35.0); MCV 90.3 fL (80-100); MPV 10.1 fL (7.6-11.3); Monocytes % 13.3 % (3.3-12.3); Neutrophils % 70.7 % (41.7-73.7); Nucleated Red Blood Cells % 0.2 % (0-0); Platelets 208 thou/uL (152-406); RBC Red Blood Cell Count 5.64 M/uL (4.33-5.43); Red Cell Distribution Width 13.1 % (12.1-15.2)
[2025-02-02 14:55] LABS: PT Prothrombin Time 12.5 SECONDS (10-13.0); PTT, Activated Partial Thromb 30.4 SECONDS (27.2-37.4); Protime INR 1.1
[2025-02-02 15:00] LABS: Albumin 3.5 g/dL (3.4-5.0); Albumin/Globulin Ratio 0.9 (1.1-1.8); Anion Gap 10.5 mEq/L (5.0-15.0); Bilirubin Total 0.5 mg/dL (0.2-1.0); Globulin 4.1 g/dL (2.3-3.5); Potassium 3.5 mEq/L (3.5-5.1); Protein, Total 7.6 g/dL (6.4-8.2)
--- NOTE | 2025-02-02 16:31 | RAD REPORT ---
EXAMINATION: CT ABDOMEN AND PELVIS WITH CONTRAST CLINICAL INDICATION: GI bleed;Abd pain TECHNIQUE: CT abdomen and pelvis was performed, after the administration of IV contrast, [facility]. Axial, sagittal and coronal reconstructions were obtained. One or more of the following dose reduction techniques were used: Automated exposure control, adjustment of the mA and k V according to patient size, and iterative reconstruction. Unless otherwise specified, incidental findings do not require dedicated imaging follow-up. COMPARISON: No prior exam. FINDINGS: LOWER CHEST: The visualized lung bases are clear. LIVER: Mild fatty liver is present. No focal lesion or biliary dilatation is seen. Grossly unremark able gallbladder. SPLEEN: Normal size. No focal lesion. PANCREAS: No mass, ductal dilation, or lawanda-pancreatic fluid. ADRENALS: Normal; no mass. KIDNEYS: Normal size and contour. No hydronephrosis. GASTROINTESTINAL TRACT: No evidence of free air, significant intra-abdominal free fluid, bowel obstru ction or abscess. Diffuse fluid distention of the colon suggests diarrheal state. APPENDIX: Normal appendix. LYMPH NODES: No lymphadenopathy. MUSCULOSKELETAL: No acute or suspicious osseous abnormality. ADDITIONAL FINDINGS: None. IMPRESSION: No acute or concerning abnormalities seen in the abdomen or pelvis. Diffuse fluid distention of the colon suggests diarrheal state. Fatty liver.
--- NOTE | 2025-02-02 16:59 | EDPHYS ---
Physician Documentation [facility] Name: Ki Rodriguez Age: 49 yrs Sex: Male : 1975 Arrival Date: 02/02/2025 Time: 12:01 Bed 19 Private MD: ED Physician Pablo Marin HPI: 02/02 14:41 This 49 yrs old Male presents to ER via Ambulatory with complaints of rn Abdominal Pain, Possible Stomach Bleeding. 14:41 The patient presents with abdominal pain in the epigastric area. Onset: The rn symptoms/episode began/occurred yesterday. The symptoms do not radiate. Associated signs and symptoms: Pertinent positives: nausea and vomiting, diarrhea, Pertinent negatives: fever. The symptoms are described as achy. Modifying factors: The symptoms are alleviated by nothing, the symptoms are aggravated by touching the area. Severity of pain: At its worst the pain was moderate in the emergency department the pain is unchanged. The patient has not experienced similar symptoms in the past. Patient reports epigastric abdominal pain that began yesterday, associated with nonbloody emesis. Also having dark diarrhea. Has history of diverticulitis but does not have known ulcers or gastric problems. Not on blood thinners. No syncope or shortness of breath.. Historical: - Allergies: 12:30 NKA; jl7 - Home Meds: 12:30 None [Active]; jl7 - PMHx: 12:30 Asthma; Diverticulitis; jl7 - Immunization history:: Adult Immunizations unknown. - Infectious Disease History:: Denies. - Social history:: Smoking status: Patient denies any tobacco usage or history of. - Family history:: not pertinent. - Hospitalizations: : No recent hospitalization is reported. ROS: 14:41 Constitutional: Positive for subjective fever and chills Cardiovascular: Negative for rn chest pain, palpitations, and edema, Respiratory: Negative for shortness of breath, cough, wheezing, and pleuritic chest pain, Abdomen/GI: Positive for epigastric abdominal pain and vomiting MS/Extremity: Negative for injury and deformity, Neuro: Negative for headache, weakness, numbness, tingling, and seizure, Exam: 14:41 Constitutional: This is a well developed, well nourished patient who is awake, alert, rn and in no acute distress. Cardiovascular: Regular rate and rhythm. No pulse deficits. Respiratory: No increased work of breathing, no retractions or nasal flaring. Abdomen/GI: Soft, epigastric tenderness, no distention or peritoneal signs MS/ Extremity: Pulses equal, no cyanosis. Neuro: Awake and alert, GCS 15 16:05 ECG was reviewed by the Attending Physician. rn Vital Signs: 12:29 BP 148 / 108; Pulse 87; Resp 17; Temp 98.3; Pulse Ox 98% ; Weight 111.13 kg; Height 5 jl7 ft. 5 in. ; Pain 10/10; 14:30 BP 141 / 86; Pulse 81; Resp 14; Pulse Ox 98% on R/A; db 15:00 BP 138 / 80; Pulse 80; Resp 17; Pulse Ox 99% ; db 16:00 BP 137 / 95; Pulse 77; Resp 18; Pulse Ox 99% on R/A; db 17:16 BP 151 / 94; Pulse 74; Resp 16; Pulse Ox 96% on R/A; db 12:29 Body Mass Index 40.77 (111.13 kg, 165.1 cm) jl7 12:29 Pain Scale: Adult jl7 MDM: 12:12 Medical Screening Exam initiated rn 16:56 Differential diagnosis: gastritis, gastroesophageal reflux disease, GI Bleed, Peptic rn Ulcer Disease, Perf. Duodenal Ulcer, Perf. Gastric Ulcer. Data reviewed: vital signs, nurses notes, lab test result(s), radiologic studies, CT scan, and as a result, I will discharge patient. Counseling: I had a detailed discussion with the patient and/or guardian regarding the historical points, exam findings, and any diagnostic results supporting the discharge/admit diagnosis, lab results, radiology results, the need for outpatient follow up, to return to the emergency department if symptoms worsen or persist or if there are any questions or concerns that arise at home. Special discussion: Based on the patient's Hx, exam, and Dx evaluation, there is no indication for emergent surgery or inpatient Tx. It is understood by the patient/guardian that if the Sx's persist or worsen they need to return immediately for re-evaluation. I discussed with the patient/guardian in detail that at this point there is no indication for admission to the hospital. It is understood, however, that if the symptoms persist or worsen the patient needs to return immediately for re-evaluation. Based on the history and exam findings, there is no indication for further emergent testing or inpatient evaluation. I discussed with the patient/guardian the need to see the pediatric intensive physician for further evaluation of the symptoms. ED course: No acute findings in bladder imaging. Hemoglobin 18, CT abdomen pelvis shows diarrheal state but no evidence of active extravasation or surgical finding. Patient will follow-up with GI. Has been told to follow-up with GI in the past after previous intestinal infection and never did. Will discharge home with antibiotics, nausea medication and antacids. Strict return precautions given and understood.. 02/02 12:30 Order name: CBC with Diff; Complete Time: 15:32 rn 02/02 12:30 Order name: CMP; Complete Time: 15:32 rn 02/02 12:30 Order name: Lipase; Complete Time: 15:32 rn 02/02 12:30 Order name: Protime (+inr); Complete Time: 14:56 rn 02/02 12:30 Order name: Ptt, Activated; Complete Time: 14:56 rn 02/02 12:30 Order name: Type And Screen; Complete Time: 15:32 rn 02/02 12:30 Order name: CT Abd/Pelvis - IV Contrast Only; Complete Time: 16:45 rn 02/02 12:30 Order name: IV Saline Lock; Complete Time: 14:35 rn 02/02 12:30 Order name: Labs collected and sent; Complete Time: 14:35 rn 02/02 12:30 Order name: EKG - Nurse/Tech; Complete Time: 14:35 rn EC:05 Rate is 78 beats/min. Rhythm is regular. QRS [place] is Normal. RI interval is normal. QRS rn interval is normal. QT interval is normal. No Q waves. T waves are Normal. No ST changes noted. Clinical impression: NSR w/ Non-specific ST/T Changes. Interpreted by me. Reviewed by me. Administered Medications: 14:30 Drug: Ondansetron IVP 4 mg IVP once; over 2 minutes Route: IVP; Site: right antecubital;db 17:21 Follow up: Response: No adverse reaction db 14:30 Drug: Pantoprazole IVP 40 mg IVP once Route: IVP; Site: right antecubital; db 17:20 Follow up: Response: No adverse reaction db 17:10 Drug: Ciprofloxacin PO 500 mg PO once Route: PO; db 17:21 Follow up: Response: No adverse reaction db 17:10 Drug: metroNIDAZOLE PO 500 mg PO once Route: PO; db 17:21 Follow up: Response: No adverse reaction db 17:10 Drug: Diphenoxylate-Atropine PO 2 tabs PO once Route: PO; db 17:20 Follow up: Response: No adverse reaction db Disposition Summary: 02/02/25 16:58 Discharge Ordered Notes: Location: Home rn Problem: new rn Symptoms: have improved rn Condition: Stable rn Diagnosis - Diarrhea, unspecified rn - Vomiting, unspecified rn Followup: rn - With: Lamberto Pryor MD - When: As needed - Reason: Recheck today's complaints, Re-evaluation by your physician Discharge Instructions: - Discharge Summary Sheet rn - Diarrhea, Adult rn - Nausea and Vomiting, Adult rn Forms: - Medication Reconciliation Form rn - Antibiotic editor farm journal - Prescription Opioid Use rn - Patient Portal Instructions rn - Leadership Thank You Letter rn Prescriptions: - ondansetron 4 mg Oral Tablet,disintegrating - take 1 tablet ORAL route every 8 hours As needed as needed for nausea and rn vomiting; 12 tablet; Refills: 0, Product Selection Permitted - Flagyl 500 mg Oral Tablet - take 1 tablet ORAL route every 8 hours for 10 days; 30 tablet; Refills: 0, rn Product Selection Permitted - Protonix 40 mg Oral Tablet - take 1 tablet ORAL route once daily; 30 tablet; Refills: 0, Product Selection rn Permitted - Cipro 500 mg Oral tablet - take 1 tablet ORAL route every 12 hours for 10 days; 20 tablet; Refills: 0, rn Product Selection Permitted Signatures: Dispatcher [employer] EDMS Pablo Marin MD MD rn Leal, Jahala, RN RN jl7 Miracle Verma RN RN db Corrections: (The following items were deleted from the chart) 12: 12:30 CBC+H.LAB.BRZ ordered. EDMS EDMS 12: 12:30 COMPREHENSIVE METABOLIC PANEL+C.LAB.BRZ ordered. EDMS EDMS : 12:30 LIPASE+C.LAB.BRZ ordered. EDMS EDMS : 12:30 PROTIME (+INR)+COAG.LAB.BRZ ordered. EDMS EDMS : 12:30 PTT, ACTIVATED+COAG.LAB.BRZ ordered. EDMS EDMS 12:30 TYPE AND SCREEN+BB.LAB.BRZ ordered. EDMS EDMS 12:31 Abdomen Pelvis W Con+CT.RAD.BRZ ordered. EDMS EDMS
--- NOTE | 2025-02-02 16:59 | ER ---
Nurse's Notes [facility] Name: Ki Rodriguez Age: 49 yrs Sex: Male : 1975 Arrival Date: 02/02/2025 Time: 12: Bed 19 Private MD: Diagnosis: Diarrhea, unspecified;Vomiting, unspecified Presentation: 02/02 12:29 Chief complaint: Patient states: Diarrhea, abdominal pain, black stool since yesterday. jl7 Coronavirus screen: At this time, the client does not indicate any symptoms associated with coronavirus-19. Ebola Screen: No symptoms or risks identified at this time. Initial Sepsis Screen: Does the patient meet any 2 criteria? No. Patient's initial sepsis screen is negative. Does the patient have a suspected source of infection? No. Patient's initial sepsis screen is negative. Risk Assessment: Do you want to hurt yourself or someone else? Patient reports no desire to harm self or others. Onset of symptoms was February 01, 2025. 12:29 Method Of Arrival: Ambulatory [facility] 12:29 Acuity: SNEHAL 3 jl7 Triage Assessment: 12:30 General: Appears in no apparent distress. uncomfortable, Behavior is calm, cooperative. jl7 Pain: Complains of pain in abdomen Pain currently is 10 out of 10 on a pain scale. GI: Reports diarrhea. Historical: - Allergies: 12:30 NKA; jl7 - Home Meds: 12:30 None [Active]; jl7 - PMHx: 12:30 Asthma; Diverticulitis; jl7 - Immunization history:: Adult Immunizations unknown. - Infectious Disease History:: Denies. - Social history:: Smoking status: Patient denies any tobacco usage or history of. - Family history:: not pertinent. - Hospitalizations: : No recent hospitalization is reported. Screenin:26 [facility] ED Fall Risk Assessment (Adult) History of falling in the last 3 months, db including since admission No falls in past 3 months (0 pts) Confusion or Disorientation No (0 pts) Intoxicated or Sedated No (0 pts) Impaired Gait No (0 pts) Mobility Assist Device Used No (0 pt) Altered Elimination No (0 pt) Score/Fall Risk Level 0 - 2 = Low Risk Oriented to surroundings, Maintained a safe environment. Abuse screen: Denies threats or abuse. Denies injuries from another. Nutritional screening: No deficits noted. Tuberculosis screening: No symptoms or risk factors identified. Assessment: 14:15 Reassessment: Patient appears in no apparent distress at this time. Patient and/or db family updated on plan of care and expected duration. Pain level reassessed. Patient is alert, oriented x 3, equal unlabored respirations, skin warm/dry/pink. General: Appears in no apparent distress. comfortable, Behavior is calm, cooperative. Neuro: Level of Consciousness is awake, alert, obeys commands, Oriented to person, place, time, situation. Respiratory: Airway is patent Respiratory effort is even, unlabored, Respiratory pattern is regular, symmetrical. GI: Abdomen is distended, Bowel sounds present X 4 quads. Abd is soft Reports upper abdominal pain, diarrhea. 17:26 Reassessment: Patient appears in no apparent distress at this time. Patient and/or db family updated on plan of care and expected duration. Pain level reassessed. Patient is alert, oriented x 3, equal unlabored respirations, skin warm/dry/pink. Patient states feeling better. Patient states symptoms have improved. Vital Signs: 12:29 BP 148 / 108; Pulse 87; Resp 17; Temp 98.3; Pulse Ox 98% ; Weight 111.13 kg; Height 5 jl7 ft. 5 in. ; Pain 10/10; 14:30 BP 141 / 86; Pulse 81; Resp 14; Pulse Ox 98% on R/A; db 15:00 BP 138 / 80; Pulse 80; Resp 17; Pulse Ox 99% ; db 16:00 BP 137 / 95; Pulse 77; Resp 18; Pulse Ox 99% on R/A; db 17:16 BP 151 / 94; Pulse 74; Resp 16; Pulse Ox 96% on R/A; db 12:29 Body Mass Index 40.77 (111.13 kg, 165.1 cm) jl7 12:29 Pain Scale: Adult jl7 ED Course: 12:11 Patient arrived in ED. cj3 12:12 Pablo Marin MD is Attending Physician. rn 12:30 Triage completed. jl7 12:30 Arm band placed on right wrist. jl7 14:00 Nemo Carlton, RN is Primary Nurse. ss 14:35 Miracle Verma, RN is Primary Nurse. db 15:37 CT Abd/Pelvis - IV Contrast Only In Process Unspecified. EDMS 16:58 Lamberto Pryor MD is Referral Physician. rn 17:26 Patient has correct armband on for positive identification. Bed in low position. Call db light in reach. Side rails up X 1. Provided Education on: DISCHARGE, PRESCRIPTIONS AND FOLLOWUP. Client placed on continuous cardiac and pulse oximetry monitoring. NIBP monitoring applied. 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 Pulse ox on. NIBP on. Warm blanket given. Pillow given. 17:26 No provider procedures requiring assistance completed. IV discontinued, intact, db bleeding controlled, No redness/swelling at site. Administered Medications: 14:30 Drug: Ondansetron IVP 4 mg IVP once; over 2 minutes Route: IVP; Site: right antecubital;db 17:21 Follow up: Response: No adverse reaction db 14:30 Drug: Pantoprazole IVP 40 mg IVP once Route: IVP; Site: right antecubital; db 17:20 Follow up: Response: No adverse reaction db 17:10 Drug: Ciprofloxacin PO 500 mg PO once Route: PO; db 17:21 Follow up: Response: No adverse reaction db 17:10 Drug: metroNIDAZOLE PO 500 mg PO once Route: PO; db 17:21 Follow up: Response: No adverse reaction db 17:10 Drug: Diphenoxylate-Atropine PO 2 tabs PO once Route: PO; db 17:20 Follow up: Response: No adverse reaction db Medication: 17:28 VIS not applicable for this client. db Outcome: 16:58 Discharge ordered by . rn 17:26 Discharged to home ambulatory, with family, db 17:26 Condition: stable 17:26 Discharge instructions given to patient, Instructed on discharge instructions, follow up and referral plans. Prescriptions given X 4, 17:28 Patient left the ED. db Signatures: Dispatcher [employer] EDMS Pablo Mairn MD MD rn Blanchard, Shelby, RN RN ss Leal, Jahala, RN RN jl7 Miracle Verma RN RN Connie Woodward cj3
[2025-02-02] MEDS ORDERED: metroNIDAZOLE 500 MG TABLET ONE (17:12)
[2025-02-02] MEDS ORDERED: CIPROFLOXACIN HCL 500 MG TAB ONE (17:12)
[2025-02-02] MEDS ORDERED: DIPHENOX/ATROP SULF 1 TAB PO ONE (17:13)
[2025-02-02 17:33] VITALS: TEMP 98.3
[2025-02-02 17:37] VITALS: BP 151/94; O2SAT 96
--- NOTE | 2025-02-03 16:26 | EKG ---
Test Date: 2025-02-02 Test Time: 14:12:44 Mental Health Practitioner: KARINA MEASUREMENT RESULTS: Intervals: Rate: 78 AR: 144 QRSD: 114 QT: 378 QTc: 430 [place]: P: 38 AR: 144 QRS: 9 T: -8 INTERPRETIVE STATEMENTS: Normal sinus rhythm Incomplete right bundle branch block Possible Inferior infarct, age undetermined Cannot rule out Anterior infarct, age undetermined Abnormal ECG Compared to ECG 09/04/2010 10:42:32 Myocardial infarct finding now present Electronically Signed On 02-03-25 16:26:13 CDT by Pasquale Field
== END 2025-02-02 17:28 | disposition home or self-care (01) ==
LOC: ER 12:01
DX: R19.7 Diarrhea, unspecified (principal); R11.10 Vomiting, unspecified; R10.13 Epigastric pain
CPT/HCPCS: 93005; 85025; 36415; 86900; 86850; 85610; 86901; 85730; 83690; 80053; 74177; 96375; 96374; 99285; Q9967; J2470; J2405